=== PATIENT | female | born 1985 | race American Indian/Alaskan Native ===

== ENCOUNTER 2021-01-20 07:36 | Emergency (ER) | payer OTHER ==
[2021-01-20 07:48] VITALS: BP 107/68
--- NOTE | 2021-01-20 09:13 | Emergency Department Report ---
ED Rash HPI - HPI Chief Complaint: Skin Rash Stated Complaint: ITCHY BURNING RASH ON FACE Time Seen by Provider: 01/20/21 08:15 Duration: Weeks Location: Other (face) Suspected Cause: Unknown Rash Symptoms: Yes Itching, No Facial Swelling, No Tongue/Oral Swelling, No Breathing Difficulties, No Choking Sensation, No Wheezing/Dyspnea, No Peeling, No Blistering, No Fever, No Lightheaded, No Malaise, No Myalgias Severity: mild Other History: This is a 35-year-old female nontoxic, well nourished in appearance, no acute signs of distress presents to the ED with c/o of acute on chronic intermittent left-sided facial redness and itching times several weeks. Patient stated was seen in [facility] and was prescribed cortisone cream but has ran out of it. Patient states it is itching and redness. Patient denies any drooling, hoarseness or facial swelling. Patient denies any trauma. She denies any fever, chills, nausea, vomiting, chest pain, shortness of breath, headache, stiff neck, numbness or tingling. Patient states allergies to penicillin. ED Review of Systems ROS: Stated complaint: ITCHY BURNING RASH ON FACE Other details as noted in HPI Comment: All other systems reviewed and negative Constitutional: denies: chills, fever Eyes: denies: eye pain, eye discharge, vision change ENT: denies: ear pain, throat pain Respiratory: denies: cough, shortness of breath, wheezing Cardiovascular: denies: chest pain, palpitations Endocrine: no symptoms reported Gastrointestinal: denies: abdominal pain, nausea, diarrhea Genitourinary: denies: urgency, dysuria, discharge Musculoskeletal: denies: back pain, joint swelling, arthralgia Skin: rash. denies: lesions Neurological: denies: headache, weakness, paresthesias Psychiatric: denies: anxiety, depression Hematological/Lymphatic: denies: easy bleeding, easy bruising ED Past Medical Hx - Medications Home Medications: Home Medications Medication Instructions Recorded Confirmed Last Taken Type Hydrocortisone [Cortisone 1% 99 gm TP DAILY PRN 5 Days #1 tub 01/20/21 Unknown Rx LOTION] diphenhydrAMINE [Benadryl CAP] 25 mg PO Q8HR PRN #12 capsule 01/20/21 Unknown Rx Rash Exam - Exam General: Vital signs noted. No distress. Alert and acting appropriately. HEENT: No Periorbital Edema, No Conjuctival Injection, No Chemosis, No Perioral Edema, No Tongue Edema, No Uvular Edema, No Compromised Airway, No Drooling Lungs: Yes Good Air Exchange (Normal Breath Sounds), No Wheezes, No Ronchi, No Stridor, No Cough, No Labored Respirations, No Retractions, No Use of Accessory Muscles, No Other Abnormal Lung Sounds Heart: Yes Regular, No Murmur Skin: Yes Maculopapular Rash (Left-sided face), Yes Other (Itching), No Urticarial Rash, No Morbilliform rash, No Bulla(e), No Excoriations, No Weeping, No Tenderness, No Erythema, No Edema, No Encrustations Other: Positive: Abdomen Normal, Neurologic Normal, Musculoskeletal Normal ED Course Vital Signs 01/20/21 07:44 Temperature 98.7 F Pulse Rate 73 Respiratory 16 Rate Blood Pressure 107/68 O2 Sat by Pulse 100 Oximetry - Reevaluation(s) Reevaluation #1: 01/20/21 09:11 Patient is speaking in full sentences with no signs of distress noted. ED Medical Decision Making - Medical Decision Making This is a 35-year-old female that presents with rash of unknown etiology. Patient is stable was examined by me. There is no facial swelling. No angioedema. There is no cellulitis. No hoarseness. Patient be discharged with cortisone cream as she requested for this and Benadryl for itching. Patient was referred to Follow-up with a primary care doctor in 3-5 days or if symptoms worsen and continue return to emergency room as soon as possible. At time of discharge, the patient does not seem toxic or ill in appearance. No acute signs of distress noted. Patient agrees to discharge treatment plan of care. No further questions noted by the patient. Critical care attestation.: If time is entered above; I have spent that time in minutes in the direct care of this critically ill patient, excluding procedure time. ED Disposition Clinical Impression: Rash of face Disposition: HOME / SELF CARE / HOMELESS Is pt being admited?: No Does the pt Need Aspirin: No Condition: Stable Instructions: Rash, Adult, [id number] Additional Instructions: Follow-up with a primary care doctor in 3-5 days or if symptoms worsen and continue return to emergency room as soon as possible. Prescriptions: diphenhydrAMINE [Benadryl CAP] 25 mg PO Q8HR PRN #12 capsule PRN Reason: Itching Hydrocortisone [Cortisone 1% LOTION] 99 gm TP DAILY PRN 5 Days #1 tub PRN Reason: Rash Referrals: PRIMARY CAREMD [Referring] - 3-5 Days NURY ALICEA MD [Staff Physician] - 3-5 Days Forms: Work/School Release Form(ED) Time of Disposition: 09:13
== END 2021-01-20 10:30 | disposition home or self-care (01) ==
LOC: ED 07:36
DX: R21 Rash and other nonspecific skin eruption (principal)
CPT/HCPCS: 99281

== ENCOUNTER 2021-02-23 11:00 | Emergency (ER) | payer OTHER ==
[2021-02-23 11:07] VITALS: BP 103/61
--- NOTE | 2021-02-23 12:39 | Emergency Department Report ---
- General Chief complaint: Skin/Abscess/Foreign Body Stated complaint: BOIL, VERY BIG Time Seen by Provider: 02/23/21 12:01 Source: patient Mode of arrival: Ambulatory Limitations: No Limitations - History of Present Illness Initial comments: Patient is a 35-year-old female presents emergency room with complaints of "a boil" to the right groin that began yesterday. Patient states that she has had this in the past and always gets it in the same area. She denies any drainage, fever, chills, vomiting, diarrhea. Past medical history of HIV and reports that she is undetectable. Allergy to ibuprofen and penicillin. LNMP end of January, she denies any possibility of - Related Data Previous Rx's Medication Instructions Recorded Last Taken Type Hydrocortisone [Cortisone 1% 99 gm TP DAILY PRN 5 Days #1 tub 01/20/21 Unknown Rx LOTION] diphenhydrAMINE [Benadryl CAP] 25 mg PO Q8HR PRN #12 capsule 01/20/21 Unknown Rx Chlorhexidine Gluconate [Hibiclens] 15 ml TP BID #1 liquid 02/23/21 Unknown Rx Sulfamethoxazole/Trimethoprim 1 each PO BID 7 Days #14 tablet 02/23/21 Unknown Rx [Bactrim DS TAB] traMADoL [Ultram 50 MG tab] 50 mg PO Q6HR PRN #10 tablet 02/23/21 Unknown Rx Allergies Allergy/AdvReac Type Severity Reaction Status Date / Time ibuprofen AdvReac Hives Verified 02/23/21 11:05 Penicillins AdvReac Itching Verified 02/23/21 11:05 Abscess Boil HPI - HPI Chief Complaint: Skin/Abscess/Foreign Body Stated Complaint: BOIL, VERY BIG Time Seen by Provider: 02/23/21 12:01 Home Medications: Previous Rx's Medication Instructions Recorded Last Taken Type Hydrocortisone [Cortisone 1% 99 gm TP DAILY PRN 5 Days #1 tub 01/20/21 Unknown Rx LOTION] diphenhydrAMINE [Benadryl CAP] 25 mg PO Q8HR PRN #12 capsule 01/20/21 Unknown Rx Chlorhexidine Gluconate [Hibiclens] 15 ml TP BID #1 liquid 02/23/21 Unknown Rx Sulfamethoxazole/Trimethoprim 1 each PO BID 7 Days #14 tablet 02/23/21 Unknown Rx [Bactrim DS TAB] traMADoL [Ultram 50 MG tab] 50 mg PO Q6HR PRN #10 tablet 02/23/21 Unknown Rx Allergies/Adverse Reactions: Allergies Allergy/AdvReac Type Severity Reaction Status Date / Time ibuprofen AdvReac Hives Verified 02/23/21 11:05 Penicillins AdvReac Itching Verified 02/23/21 11:05 ED Review of Systems ROS: Stated complaint: BOIL, VERY BIG Other details as noted in HPI Comment: All other systems reviewed and negative ED Past Medical Hx - Medications Home Medications: Home Medications Medication Instructions Recorded Confirmed Last Taken Type Hydrocortisone [Cortisone 1% 99 gm TP DAILY PRN 5 Days #1 tub 01/20/21 Unknown Rx LOTION] diphenhydrAMINE [Benadryl CAP] 25 mg PO Q8HR PRN #12 capsule 01/20/21 Unknown Rx Chlorhexidine Gluconate [Hibiclens] 15 ml TP BID #1 liquid 02/23/21 Unknown Rx Sulfamethoxazole/Trimethoprim 1 each PO BID 7 Days #14 tablet 02/23/21 Unknown Rx [Bactrim DS TAB] traMADoL [Ultram 50 MG tab] 50 mg PO Q6HR PRN #10 tablet 02/23/21 Unknown Rx ED Physical Exam - General Limitations: No Limitations General appearance: alert, in no apparent distress - Head Head exam: Present: atraumatic, normocephalic - Eye Eye exam: Present: normal appearance - ENT ENT exam: Present: mucous membranes moist - Extremities Exam Extremities exam: Present: other (mill washer: sulaiman urias PA-C, there is a 4 cm area of induration present to the right groin, there are a few small openings present, there is purulent drainage, no significant surrounding cellulitis ) - Neurological Exam Neurological exam: Present: alert, oriented X3 - Psychiatric Psychiatric exam: Present: normal affect, normal mood - Skin Skin exam: Present: warm, dry ED Course Vital Signs 02/23/21 02/23/21 11:06 12:53 Temperature 99.4 F Pulse Rate 82 69 Respiratory 16 Rate Blood Pressure 103/61 [Right] O2 Sat by Pulse 100 100 Oximetry ED Medical Decision Making - Medical Decision Making Patient is a 35-year-old female presents emergency room with complaints of "a boil" to the right groin that began yesterday. Patient states that she has had this in the past and always gets it in the same area. She denies any drainage, fever, chills, vomiting, diarrhea. Past medical history of HIV and reports that she is undetectable. Allergy to ibuprofen and penicillin. LNMP end of January, she denies any possibility of . Vitals are stable. On exam:mill washer: sulaiman urias PA-C, there is a 4 cm area of induration present to the right groin, there are a few small openings present, there is purulent drainage, no significant surrounding cellulitis. It appears patient may have hiadrentitis suppurativa. There appears to be cellulitis with some small openings and drainage. There is no central drainable abscess at this time. Patient will be given prescription for medication and discussed warm compresses and Epson salt soaks. Advised patient to have the area reexamined. Discussed return precautions. Advised patient Please use medication as prescribed. Please do warm compresses three times a day. Please soak in Epson salt bath. Follow-up with a primary care doctor. Follow-up with a exercise planner. Return to emergency room immediately for any new or worsening symptoms including but not limited to worsening swelling, worsening pain, worsening drainage, worsening redness, fever, chills, vomiting, etc. Critical care attestation.: If time is entered above; I have spent that time in minutes in the direct care of this critically ill patient, excluding procedure time. ED Disposition Clinical Impression: Abscess Cellulitis Qualifiers: Site of cellulitis: trunk Site of cellulitis of trunk: groin Qualified Code(s): L03.314 - Cellulitis of groin Disposition: 01 HOME / SELF CARE / HOMELESS Is pt being admited?: No Does the pt Need Aspirin: No Condition: Stable Instructions: Skin Abscess, Hidradenitis Suppurativa Additional Instructions: Please use medication as prescribed. Please do warm compresses three times a day. Please soak in Epson salt bath. Follow-up with a primary care doctor. Follow-up with a exercise planner. Return to emergency room immediately for any new or worsening symptoms including but not limited to worsening swelling, worsening pain, worsening drainage, worsening redness, fever, chills, vomiting, etc. [facility] [employer] [facility] [employer] [employer] in [place], [place] Address: [address] [place] [address] Patti Jernigan MD [facility] [employer] in [place], [place] Address: [address] [place] [address] Dr. Munir Ramírez Address: [address], [place] [address] Prescriptions: Sulfamethoxazole/Trimethoprim [Bactrim DS TAB] 1 each PO BID 7 Days #14 tablet Chlorhexidine Gluconate [Hibiclens] 15 ml TP BID #1 liquid traMADoL [Ultram 50 MG tab] 50 mg PO Q6HR PRN #10 tablet PRN Reason: Pain , Severe (7-10) Referrals: PRIMARY CARE, [Primary Care Provider] - 2-3 Days Time of Disposition: 12:37 Print Language: ROMANIAN
== END 2021-02-23 12:53 | disposition home or self-care (01) ==
LOC: ED 11:00
DX: L02.91 Cutaneous abscess, unspecified (principal); L03.314 Cellulitis of groin; Z88.0 Allergy status to penicillin; Z88.6 Allergy status to analgesic agent
CPT/HCPCS: 99282